=== PATIENT | female | born 1980 | race Caucasian/White ===

== ENCOUNTER 2017-06-19 01:39 | Emergency (ER) | payer BC ==
[~2017-06-19] VITALS: Ht 167.6 cm; Wt 58.1 kg
[~2017-06-19 01:39] MED LIST: CLEOCIN HCL150 MG PO; COMPAZINE10 MG PO; FOLIC ACID 40400 MCG PO; KEFLEX500 MG PO; LEVOTHYROXIN0.075 MG PO; PHENERGAN 25 MG25 M1 PO; PROBIOTIC1 EAC1; TRINATE TABLET1 TAB PO
[2017-06-19 02:29] LABS: ABSOLUTE NEUTROPHILS 16.2 thou/uL (1.4-8.2); BASOPHILS 0.1 % (0.0-2.0); EOSINOPHILS 0.4 % (0.0-3.0); HEMATOCRIT 46.4 % (37.0-47.0); HEMOGLOBIN 15.9 gm/dL (12.0-15.0); LYMPHOCYTES 10.6 % (24.0-44.0); MCH 30.4 pg (26.0-34.0); MCHC 34.3 g/dL (28.0-37.0); MCV 88.6 fL (80.0-100.0); MONOCYTES 5.2 % (1.0-8.0); PLATELET COUNT 227 thou/uL (150-400); POLYS 83.7 % (36.0-66.0); RBC 5.23 mil/uL (4.20-5.00); RDW 12.9 % (10.5-14.5); WBC 19.4 thou/uL (4.0-11.0)
[2017-06-19 02:30] LABS: URINE BILIRUBIN NEGATIVE (Negative); URINE BLOOD TRACE (Negative); URINE CLARITY CLEAR; URINE COLOR YELLOW; URINE GLUCOSE-RANDOM* NEGATIVE (Negative); URINE KETONES TRACE (Negative); URINE LEUKOCYTES-REFLEX NEGATIVE (Negative); URINE NITRITE-REFLEX NEGATIVE (Negative); URINE PROTEIN (DIPSTICK) NEGATIVE (Negative); URINE SPECIFIC GRAVITY 1.025 (1.005-1.035); URINE UROBILINOGEN 0.2 E.U./dl (0.2-1.0)
[2017-06-19 02:42] LABS: CREATININE 0.8 mg/dL (0.6-1.0); POTASSIUM 3.5 mmol/L (3.5-5.1)
[2017-06-19 02:48] LABS: ALBUMIN 4.8 g/dL (3.4-5.0); TOTAL BILIRUBIN 0.8 mg/dL (<0.1-1.0); TOTAL PROTEIN 8.4 g/dL (6.4-8.2)
[2017-06-19] MEDS ORDERED: COMPAZINE10 MG PO (04:40)
[2017-06-19] MEDS ORDERED: LOPERAMIDE 2 MG2 M1 PO (04:40)
== END 2017-06-19 04:58 | disposition home or self-care (01) ==
LOC: ER 01:39
PROVIDERS: Emergency Medicine
DX: K52.9 Noninfective gastroenteritis and colitis, unspecified (principal); Z88.8 Allergy status to other drugs, medicaments and biological substances

== ENCOUNTER 2018-02-02 22:01 | Emergency (ER) | payer BC ==
[~2018-02-02] VITALS: Ht 165.1 cm; Wt 59.0 kg
[~2018-02-02 22:01] MED LIST changes: +LOPERAMIDE 2 MG2 M1 PO
[2018-02-02] MEDS ORDERED: SYNTHROID25 MC1 PO (22:08)
[2018-02-02] MEDS ORDERED: MULTIVITAMINS1 EAC6 PO (22:09)
[2018-02-02] MEDS ORDERED: TRAMADOL 50 MG50 MG PO (23:05)
[2018-02-02 23:13] VITALS: BP 105/67
== END 2018-02-02 23:14 | disposition home or self-care (01) ==
LOC: ER 22:01
DX: S60.052A Contusion of left little finger without damage to nail, initial encounter (principal); W22.8XXA Striking against or struck by other objects, initial encounter; Y93.89 Activity, other specified; Y92.89 Other specified places as the place of occurrence of the external cause; Y99.8 Other external cause status; Z98.890 Other specified postprocedural states; Z88.6 Allergy status to analgesic agent; Z88.8 Allergy status to other drugs, medicaments and biological substances

== ENCOUNTER → 2018-09-28 | Outpatient (CLI) | payer BC ==
[~2018-09-28] MED LIST changes: +MULTIVITAMINS1 EAC6 PO; +SYNTHROID25 MC1 PO; +TRAMADOL 50 MG50 MG PO
--- NOTE | 2018-09-28 09:36 | EXE ---
[facility] [place] [place] Karie Melgoza [place] [address] STRESS ECHOCARDIOGRAM Name: ABUNDIO PRESTON Room #: REG CL [facility]#: [id number] ������������� Admission: 09/28/18 ������������� Attend Phys: Shannon Turpin Discharge: ��� ������������� ��� Date of : 78 Date of Service: 09/28/18 0936 �� Report #: [id number] �������� ��������������������������������������������[id number] THIS REPORT FOR: //name// APPROVED REPORT Study performed: 09/28/2018 08:23:31 Exam: Stress Echocardiogram Indication: Chest pain Patient Location: Out-Patient Stress Nurse: Gail Leone RN Status: routine Ht: 5 ft 6 in HR: 84 bpm BP: 104/76 mmHg Rhythm: NSR Medical History Cardiac Risk Factors: None Procedure The patient underwent an Exercise Stress Test using the Jaya Protocol. Blood pressure, heart rate, and EKG were monitored. An Echocardiogram was performed by line maintenance technician in four stages in quad fashion. At peak stress, four selected images were obtained and placed side by side with resting images for comparison. Stress Test Details Stress Test: Exercise stress testing was performed using a Jaya protocol. HR Resting HR: 84 bpm Max Heart Rate (APMHR): 182 bpm Max HR Achieved: 179 bpm Target HR (85% APMHR): 154 bpm % of APMHR: 98 Recovery HR: 97 bpm HR response to stress: Normal HR response to stress BP Resting BP: 104/76 mmHg Max BP: 136/80 mmHg Recovery BP: 108/70 mmHg BP response to stress: Normal blood pressure response to stress. ECG Resting ECG: Sinus Rhythm, nonspecific ST-T [facility] [place] [place] [address] [place] [address] STRESS ECHOCARDIOGRAM Name: MOHANABUNDIO JUAN Room #: REG CL [facility]#: [id number] ������������� Admission: 09/28/18 ������������� Attend Phys: Shannon Turpin Discharge: ��� ������������� ��� Date of : 78 Date of Service: 09/28/18 0936 �� Report #: [id number] �������� ��������������������������������������������[id number] Stress ECG: Sinus Rhythm, nonspecific ST-T abnormalities ST Change: Normal Maximum ST Deviation: 0 mm Arrhythmia: None Recovery ECG: Sinus Rhythm, nonspecific ST-T abnormalities Recovery ST Change: Normal Recovery ST Deviation: 0 mm Recovery Arrhythmia: None Clinical Reason for Termination: Maximal effort Stress Symptoms: none Exercise duration: 12 min 15 sec Highest Stage Achieved: Stage 5: 5.0 mph at 18% grade. Exercise capacity: 14.30 METs Angina Score: None Stress ECG Conclusion Clinical: Non-ischemic ECG: Non-ischemic Pastrana Treadmill Score is 12.0 which is Low risk. Pre-Stress Echo The resting Echocardiogram showed normal left ventricular contractility with an estimated Ejection Fraction of about 50-55%. Normal wall motion in all segments on baseline images. Post-Stress Echo The stress Echocardiogram showed normal left ventricular contractility with an estimated Ejection Fraction of about 60-65%. Normal augmentation of wall motion in all segments on post stress images. Clinical Normal augmentation of myocardial wall segments using a 17 segment model. Conclusion Clinical Response: Non-ischemic Exercise Capacity: Superior Stress ECG Response: Non-ischemic Stress Echo Images: Non-ischemic Normal stress echocardiogram with maximal exercise stress. The left ventricle is normal in size and wall thickness in both the [facility] [place] [place] [address] [place] [address] STRESS ECHOCARDIOGRAM Name: ABUNDIO PRESTON Room #: REG [facility]#: [id number] ������������� Admission: 09/28/18 ������������� Attend Phys: Shannon Turpin Discharge: ��� ������������� ��� Date of : 78 Date of Service: 09/28/18935 �� Report #: [id number] �������� ��������������������������������������������[id number] rest and stress images. Other Information Study Quality: Adequate <Conclusion> Normal stress echocardiogram with maximal exercise stress. The left ventricle is normal in size and wall thickness in both the rest and stress images. ��������������������������������������������� <ELECTRONICALLY SIGNED> ���������������������������������������� By: Eren Cordova MD, FACC ��������������������������������������������� 09/28/18935 5 5 Eren Cordova MD, FACC /INF
== END ==
LOC: CV 07:58
DX: R07.9 Chest pain, unspecified (principal)